=== PATIENT | male | born 1985 | race African-American/Black ===

== ENCOUNTER 2018-12-17 15:05 | Outpatient (CLI) | payer OTHER ==
--- NOTE | 2018-12-18 11:26 | MRI Report ---
Reason: PAIN LEFT KNEE Procedure Date: 12/17/2018 Accession Number: [id number] / [id number] Procedure: MRI - Knee LT W/O CPT Code: FULL RESULT: EXAM: LEFT KNEE MRI WITHOUT CONTRAST EXAM DATE: 12/17/2018 04:00 PM. CLINICAL HISTORY: Pain left knee. History of 2 prior surgeries, most recently 08/06/2016. COMPARISON: None available. TECHNIQUE: Multiplanar, multisequence T1-weighted and fluid-sensitive sequences of the knee without contrast. Other: None. FINDINGS: Bones: No fracture or bone lesion. Anterior cruciate ligament reconstruction. Mild reactive edema medial tibial plateau. Minimal reactive edema at the patellofemoral joint. Minimal to small tricompartmental osteophytes, most prominent at the lateral compartment. Articular Cartilage: Small region deep partial thickness loss margin medial tibial plateau. Small foci deep partial thickness loss and irregularity/fissuring posterior aspect lateral compartment. Full-thickness fissure/tear at the median ridge of the patella. Small region deep partial thickness loss and full-thickness fissuring/tearing at the central trochlea. Medial Meniscus: Mild fraying at the free edges. Lateral Meniscus: Mild fraying at the free edges. Susceptibility artifact at the anterior root. Cruciate Ligaments: Moderate thickening of the anterior cruciate ligament graft. Thickened fibers versus scar in the anterior condylar notch measuring 1.3 x 1.3 x 1.1 cm, AP by transverse by craniocaudal. Posterior cruciate ligament intact. Collateral Ligaments: The medial collateral and lateral collateral ligamentous structures are intact. Tendons: Mild quadriceps tendinopathy. Postsurgical changes of patellar tendon graft harvest. Moderate thickening of the remaining fibers. Popliteus and semimembranosus tendons unremarkable. Musculature: No edema or fatty atrophy. Other: Small joint effusion. No popliteal cyst. No loose bodies. The medial and lateral retinacula are intact. Subcutaneous soft tissues unremarkable. Minimal edema in the anterior fat pads. IMPRESSION: 1. Moderate strain and/or scar at the anterior cruciate ligament. 2. 1.3 cm region of thickened graft fibers versus scar extending to the anterior intercondylar notch. 3. Degenerative fraying at the medial and lateral menisci. 4. Mild quadriceps tendinopathy. 5. Postsurgical changes of the patellar tendon with moderate thickening of the remaining fibers. 6. Small joint effusion. 7. Mild to moderate tricompartmental cartilage loss, most prominent at the patellofemoral joint where there is full-thickness fissuring/tearing. YUMIKO
== END 2018-12-17 15:06 | disposition home or self-care (01) ==
LOC: DI 15:05
PROVIDERS: ATTEND Physician Assistant
DX: S83.512A Sprain of anterior cruciate ligament of left knee, initial encounter (principal); M25.462 Effusion, left knee; M67.864 Other specified disorders of tendon, left knee

== ENCOUNTER 2023-10-19 16:08 | Emergency (ER) | payer OTHER ==
[2023-10-19 16:41] VITALS: BP 133/65; O2SAT 100
--- NOTE | 2023-10-19 16:46 | ED Physician Documentation ---
PD HPI URI - Stated complaint Stated Complaint: CONGESTION,NAUSEA - Chief complaint Chief Complaint: Heent - Additional information Additional information: patient presents with cough congestion sinus pressure and myalgias. Symptoms for 3 days. His entire family all with similar symptoms including his and 4 kids. He is otherwise healthy non-smoker. Review of Systems Constitutional: reports: Myalgias Nose: reports: Rhinorrhea / runny nose, Congestion Throat: reports: Sore throat Respiratory: reports: Cough PD PAST MEDICAL HISTORY - Past Medical History Past Medical History: Yes - Past Surgical History Past Surgical History: Yes Ortho: ACL reconstruction - Present Medications Home Medications: Ambulatory Orders Medication Instructions Recorded Confirmed No Known Home Medications 04/24/13 10/19/23 - Allergies Allergies/Adverse Reactions: Allergies Allergy/AdvReac Type Severity Reaction Status Date / Time No Known Drug Allergies Allergy Verified 10/19/23 16:35 - Social History Does the pt smoke?: No Smoking Status: Never smoker Does the pt drink ETOH?: No Does the pt have substance abuse?: No - Immunizations Immunizations are current?: Yes PD ED PE NORMAL - Vitals Vital signs reviewed: Yes - General General: Alert and oriented X 3 - HEENT HEENT: Atraumatic, Pharynx benign - Neck Neck: Supple, no meningeal sign - Cardiac Cardiac: RRR - Respiratory Respiratory: No respiratory distress, Clear bilaterally - Abdomen Abdomen: Normal bowel sounds Results - Vitals Vitals: Vital Signs - 24 hr 10/19/23 16:32 Temperature 36.8 C Heart Rate 100 Respiratory 16 Rate Blood Pressure 133/65 H O2 Saturation 100 Oxygen O2 Source Room air - Labs Labs: Laboratory Tests 10/19/23 16:49 Nasal Adenovirus (PCR) NOT DETECTED Nasal B. parapertussis DNA (PCR) NOT DETECTED Nasal Coronavir 229E PCR NOT DETECTED Nasal Coronavir HKU1 PCR NOT DETECTED Nasal Coronavir NL63 PCR NOT DETECTED Nasal Coronavir OC43 PCR NOT DETECTED Nasal Enterovir/Rhinovir PCR NOT DETECTED Nasal Influenza B PCR NOT DETECTED Nasal Influenza A PCR NOT DETECTED Nasal Parainfluen 1 PCR NOT DETECTED Nasal Parainfluen 2 PCR NOT DETECTED Nasal Parainfluen 3 PCR NOT DETECTED Nasal Parainfluen 4 PCR NOT DETECTED Nasal RSV (PCR) NOT DETECTED Nasal B.pertussis DNA PCR NOT DETECTED Nasal C.pneumoniae (PCR) NOT DETECTED Arnold Human Metapneumo PCR NOT DETECTED Nasal M.pneumoniae (PCR) NOT DETECTED Nasal SARS-CoV-2 (PCR) NOT DETECTED PD Medical Decision Making - ED course ED course: Has clear viral symptoms. Well-appearing normal saturation nontoxic. Will send viral panel. He requested note for work which seems reasonable until he is feeling better we will give him 2 days off. Will call him with results of his viral panel is likely reflects the illness that is affecting his entire family. Departure - Departure Disposition: Home, Self Care Clinical Impression: URI (upper respiratory infection) Condition: Good Instructions: ED URI Viral Comments: Push fluids. Motrin Tylenol for fever and headache. We will call you with results of your viral panel. Antibiotics do not help for this type of illness symptomatic treatment is sweat will make you feel better. Forms: PCP List Discharge Date/Time: 10/19/23 16:56
[2023-10-19 17:43] LABS: B. PARAPERTUSSIS- RESP PCR PAN NOT DETECTED; B. PERTUSSIS- RESP PCR PANEL NOT DETECTED; C. PNEUMONIAE- RESP PCR PANEL NOT DETECTED; CORONAVIRUS 229E-RESP PCR NOT DETECTED; CORONAVIRUS HKU1-RESP PCR NOT DETECTED; CORONAVIRUS NL63-RESP PCR NOT DETECTED; CORONAVIRUS OC43-RESP PCR NOT DETECTED; HUMAN METAPNEUMOVIRUS NOT DETECTED; INFLUENZA A- RESP PCR PANEL NOT DETECTED; INFLUENZA B - RESP PCR PANEL NOT DETECTED; M. PNEUMONIAE- RESP PCR PANEL NOT DETECTED; PARAINFLUENZA VIRUS 1 NOT DETECTED; PARAINFLUENZA VIRUS 2 NOT DETECTED; PARAINFLUENZA VIRUS 3 NOT DETECTED; PARAINFLUENZA VIRUS 4 NOT DETECTED; RHINOVIRUS/ENTEROVIRUS NOT DETECTED; RSV- RESP PCR PANEL NOT DETECTED; SARS-CoV-2 -RESP PCR PANEL NOT DETECTED
== END 2023-10-19 16:56 | disposition home or self-care (01) ==
LOC: ED 16:08
DX: J06.9 Acute upper respiratory infection, unspecified (principal)
CPT/HCPCS: 87633; 99283

== ENCOUNTER 2023-10-24 12:53 | Emergency (ER) | payer OTHER ==
[2023-10-24 13:13] VITALS: BP 139/80; O2SAT 100
--- NOTE | 2023-10-24 13:49 | ED Physician Documentation ---
PD HPI HEENT - Stated complaint Stated Complaint: CONGESTION/HEAD PX - Chief complaint Chief Complaint: Heent - History obtained from History obtained from: Patient - Additional information Additional information: Patient is a 38-year-old male presenting for evaluation of redness to his right eye with crusting this morning. He was recently seen for cough and congestion with a negative workup including respiratory panel. He states he still has some of those symptoms. He states his son at home has also had pinkeye in the last day prior to the onset of his. Denies any vision issues. Does not wear contacts. No headache. No fever. Review of Systems Constitutional: denies: Fever Eyes: reports: Discharge. denies: Decreased vision, Irritation Nose: reports: Congestion PD PAST MEDICAL HISTORY - Past Medical History Past Medical History: No - Past Surgical History Past Surgical History: Yes Ortho: ACL reconstruction - Present Medications Home Medications: Ambulatory Orders Medication Instructions Recorded Confirmed Polymyxin B/Trimeth Ophth Drop 1 drops RIGHTEYE Q3H 7 Days #1 each 10/24/23 [Polytrim Ophth Drops] - Allergies Allergies/Adverse Reactions: Allergies Allergy/AdvReac Type Severity Reaction Status Date / Time No Known Drug Allergies Allergy Verified 10/24/23 13:09 - Social History Does the pt smoke?: No Smoking Status: Never smoker Does the pt drink ETOH?: No Does the pt have substance abuse?: No - Immunizations Immunizations are current?: Yes PD ED PE NORMAL - General General: Alert and oriented X 3, No acute distress, Well developed/nourished - HEENT HEENT: Atraumatic, PERRL, EOMI, Moist mucous membranes, Pharynx benign - Respiratory Respiratory: No respiratory distress - Neuro Neuro: Normal speech PD ED PE EXPANDED - Eyes Eyes: PERRL, EOMI, Injected conj/sclera (R eye), Exudate (R eye ), Normal corneas. No: Eyelid swelling, Eyelid erythema Results - Vitals Vitals: Vital Signs - 24 hr 10/24/23 13:03 Temperature 36.7 C Heart Rate 69 Respiratory 18 Rate Blood Pressure 139/80 H O2 Saturation 100 Oxygen O2 Source Room air PD Medical Decision Making - ED course ED course: Patient is a 38-year-old male with recent URI symptoms presenting with conjunctival injection and discharge from the right eye consistent with conjunctivitis. No signs of irritation or history to suggest foreign body or Corneal abrasion. No issues with vision. Son at home also has similar sympto ms. Patient counseled on concerning symptoms to return for. No signs of orbital or periorbital cellulitis.Will start on ophthalmic antibiotic drops. Departure - Departure Disposition: 01 Home, Self Care Clinical Impression: Upper respiratory infection Conjunctivitis Qualifiers: Conjunctivitis type: acute Acute conjunctivitis type: bacterial Laterality: right Qualified Code(s): H10.31 - Unspecified acute conjunctivitis, right eye Condition: Stable Instructions: ED Conjunctivitis Nonspecific, ED URI Viral Prescriptions: Polymyxin B/Trimeth Ophth Drop [Polytrim Ophth Drops] 1 drops RIGHTEYE Q3H 7 Days #1 each Comments: Symptoms you have had over the last week suggest a viral illness. Respiratory swab was negative earlier in the week but there are a number of viruses that we do not test for. However you do appear to have an infection in the right eye called pinkeye or conjunctivitis. I am starting on an antibiotic eyedrop and sent this prescription to [facility] in [place]. Return to the ER with any worsening symptoms such as labored breathing or changes to vision. Forms: PCP List Discharge Date/Time: 10/24/23 13:54
== END 2023-10-24 13:54 | disposition home or self-care (01) ==
LOC: ED 12:53
DX: J06.9 Acute upper respiratory infection, unspecified (principal); H10.31 Unspecified acute conjunctivitis, right eye
CPT/HCPCS: 99282; 99283